=== PATIENT | male | born 2000 | race Caucasian/White ===

== ENCOUNTER 2021-04-22 11:22 | Emergency (ER) | payer MEDICAID ==
[~2021-04-22] VITALS: Ht 170.2 cm; Wt 65.0 kg
[2021-04-22 12:59] VITALS: BP 128/83
== END 2021-04-22 15:11 | disposition home or self-care (01) ==
LOC: ER 11:22
DX: Z48.02 Encounter for removal of sutures (principal)
CPT/HCPCS: 99281

== ENCOUNTER 2023-11-26 23:24 | Emergency (ER) | payer OTHER ==
[~2023-11-26] VITALS: Ht 177.8 cm; Wt 95.0 kg
[2023-11-26 23:29] VITALS: O2SAT 100
[2023-11-26 23:41] VITALS: BP 185/109
[2023-11-26 23:45] VITALS: PULSE 71; RESP 18
[2023-11-26] MEDS ORDERED: PROPOFOL 10MG/ML 100ML 100 ML IV ONE (23:45)
[2023-11-26] MEDS ORDERED: NOREPINEPHRINE 8MG/250ML PMX 250 ML IV NR ×2 (23:45)
[2023-11-27] MEDS ORDERED: SUCCINYLCHOLINE CHLORIDE 200MG/10ML IV ONE (00:15)
[2023-11-27] MEDS ORDERED: VECURONIUM BROMIDE 10 MG/VIAL IV ONE (00:15)
[2023-11-27] MEDS ORDERED: SODIUM CHLORIDE 0.9% 1,000 ML IV ONE (00:15)
[2023-11-27] MEDS ORDERED: ETOMIDATE 2MG/ML 10ML VIAL IV ONE (00:15)
== END 2023-11-26 23:57 | disposition short-term general hospital (02) ==
LOC: ER 23:37
DX: S01.83XA Puncture wound without foreign body of other part of head, initial encounter (principal); W34.09XA Accidental discharge from other specified firearms, initial encounter; Y93.89 Activity, other specified; Y92.89 Other specified places as the place of occurrence of the external cause; Y99.8 Other external cause status
CPT/HCPCS: 71045; 31500; 99285; J3490; J2704; Z7610 ×3; 94002; J7030